=== PATIENT | female | born 1960 | race Caucasian/White ===

== ENCOUNTER → 2016-06-13 | Outpatient (CLI) | payer OTHER ==
--- NOTE | 2016-06-13 10:55 | MM ---
Reason for exam: clinical finding. Last mammogram was performed 6 months ago. History: Patient is postmenopausal. Indicated problem(s): pain in the left breast. Physical Findings: Nurse did not find any significant physical abnormalities on exam. MG 3D Diag Mammo W/Cad LT CC and MLO view(s) were taken of the left breast. Prior study comparison: December 07, 2015, bilateral MG diagnostic mammo w CAD FAREED. No significant new findings when compared with previous films. These results were verbally communicated with the patient and result sheet given to the patient on 06/13/16. ASSESSMENT: Negative, BI-RAD 1 RECOMMENDATION: Routine screening mammogram of both breasts in 6 months. Back on schedule.
--- NOTE | 2016-06-13 11:01 | USB ---
Reason for exam: clinical finding. History: Patient is postmenopausal. US Breast LT Left breast ultrasound including all four quadrants, the retroareolar region and axilla demonstrates a 0.73 x 0.57 x 0.66cm cystic lesion with duct ectasia at the nipple. These results were verbally communicated with the patient and result sheet given to the patient on 06/19/16. ASSESSMENT: Benign, BI-RAD 2 RECOMMENDATION: Routine screening mammogram of both breasts in 6 months. Back on schedule.
== END | disposition home or self-care (01) ==
LOC: RADMAMWWP 08:26
PROVIDERS: ATTEND Family Medicine
DX: N64.4 Mastodynia (principal)
CPT/HCPCS: 76641; G0206; G0279

== ENCOUNTER → 2020-03-11 | Outpatient (CLI) | payer OTHER ==
[2020-03-11 11:18] VITALS: BP 127/84; PULSE 77; RESP 16; TEMP 98.1
--- NOTE | 2020-03-11 11:57 | P.GSHP ---
History of Present Illness H&P Date: 03/11/20 Chief Complaint: mastodynia Sayda is a 59 year old white female seen in consultation for Dr. Padron regarding pain in her left breast. She underwent a left breast diagnostic mammogram on which an ultrasound was recommended nothing of concern was seen in the mammogram. An ultrasound no lesions of concern were identified. She was recommended to follow with a breast surgeon secondary to the persistent pain in the left breast. Bilateral mammogram prior to this and we are obtaining those reports. The pain is intermittent. It occurs approximately once a week. The pain lasts for approximately an hour when it occurs. It does not wake her up at night. She is unsure of what causes the pain. The pain is located in the upper outer quadrant region. It is aching in nature. It does not radiate. 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 She has no history of any infection or surgery of the breast. She does not feel any lumps masses or nodules in her breast. She does not complain of any definite nipple discharge or skin changes. Her last bilateral mammogram was [id number]. This was a benign BIRADS 2 with no worrisome changes. Caffeine: 2 cups of coffee per day Nicotine: She has explosive secondhand smoke from her Theophylline:weekly Family History: sister: breast and colon cancer Hormonal History: menarche: 11 , 1 tubal, breast fed: no, age at first : 14 menopause: 52 BCP: none hormones: none Surgical History: 1. tubal Medical History: 1. overactive bladder 2. COPD 3. HTN Social History: smoke: none, second hand smoke. She used to smoke but stopped 18 years ago; < 1/ppd for 20 years alcohol: none drugs: none - Constitutional Constitutional: Denies chills, Denies fever - EENT Comment: dry eyes wears glasses Ears: bilateral: tinnitus, deny: decreased hearing Ears, nose, mouth and throat: Denies headache, Denies sore throat - Breasts Breasts: bilateral: as per HPI - Cardiovascular Cardiovascular: Denies chest pain, Denies shortness of breath - Respiratory Respiratory: Denies cough, Denies 7 - Gastrointestinal Comment: GERD Gastrointestinal: Denies abdominal pain, Denies diarrhea, Denies nausea, Denies vomiting - Genitourinary (Female) Genitourinary: Denies dysuria, Denies hematuria - Menstruation Menstruation: Reports postmenopausal - Musculoskeletal Comment: back pain extends to lower left abdomen - Integumentary Integumentary: Denies pruritus, Denies rash - Neurological Neurological: Denies numbness, Denies weakness - Psychiatric Psychiatric: Denies anxiety, Denies depression - Endocrine Endocrine: Denies fatigue, Denies weight change - Hematologic/Lymphatic Comment: none - Allergic/Immunologic Allergic/Immunologic: Reports as per HPI, Reports seasonal allergies Past Medical History Past Medical History: COPD, GERD/Reflux, Hypertension History of Any Multi-Drug Resistant Organisms: None Reported Past Surgical History: Heart Catheterization, Tubal Ligation Additional Past Surgical History / Comment(s): ECTOPIC PREG- LAPAROTOMY,COLONOSCOPY,EGD Past Anesthesia/Blood Transfusion Reactions: No Reported Reaction Past Psychological History: Anxiety Smoking Status: Former smoker Past Alcohol Use History: None Reported Additional Past Alcohol Use History / Comment(s): STARTED SMOKING AT AGE 17 QUIT IN 2002 SMOKED 1/2-1PPD Past Drug Use History: None Reported - Past Family History Mother Family Medical History: No Reported History Medications and Allergies Home Medications Medication Instructions Recorded Confirmed Type Acetaminophen Tab [Tylenol] 500 - 1,000 mg PO BID 11/17/15 03/11/20 History Omeprazole 20 mg PO DAILY 11/17/15 03/11/20 History Albuterol Inhaler (Mhu) [Ventolin 1 - 2 puff INHALATION RT-Q6H PRN 11/23/15 03/11/20 History Hfa Inhaler] Mirabegron [Myrbetriq] 50 mg PO DAILY 03/11/20 03/11/20 History lisinopriL [Zestril] 5 mg PO DAILY 03/11/20 03/11/20 History Allergies Allergy/AdvReac Type Severity Reaction Status Date / Time codeine AdvReac Nausea & Verified 03/11/20 11:01 Vomiting Surgical - Exam Vital Signs Temp Pulse Resp BP Pulse Ox 98.1 F 77 16 127/84 96 03/11/20 11:13 03/11/20 11:13 03/11/20 11:13 03/11/20 11:13 03/11/20 11:13 BMI 31.2 - General well developed, well nourished, no distress - Eyes normal ocular movement - ENT no hearing loss, no congestion - Neck trachea midline - Respiratory normal respiratory effort, clear to auscultation - Cardiovascular Rhythm: regular Heart Sounds: normal: S1, S2 - Abdomen Abdomen: soft, non tender, no guarding, no rigid, no rebound - Integumentary normal turgor - Neurologic no disoriented, no combative - Musculoskeletal normal gait - Psychiatric oriented to time, oriented to person, oriented to place, speech is normal, memory intact breast exam: BRA: 40C inspection: bilateral grade 2/3 ptosis Operation: Right breast: Multi-positional exam no dominant masses or nodules of concern, fibrocystic changes Right axilla: No adenopathy of concern Left breast: Multiple positional exam increased fullness upper-outer quadrant extending into the area of the axilla which is the area of tenderness no discrete mass but increased fullness and density Left axilla: No adenopathy of concern Results Mammogram and ultrasound results of the left breast reviewed, right breast mammogram results pending Assessment and Plan Assessment: Impression: 1. overactive bladder 2. COPD 3. HTN 4. Left breast mastodynia 5. Left breast increased fullness upper-outer quadrant area 6. Bilateral mammogram from [id number] reviewed benign BIRAD 2. Plan: 1. Ultrasound targeted evaluation of area of fullness in the left breast upper outer quadrant 2. We will discuss causes of fibrocystic breast discomfort 3. Consider needle biopsy of area of concern depending on ultrasound results 4. Patient is due for bilateral mammogram on [id number], she will have bilateral map mammogram with ultrasound of the area of concern in the left breast and follow-up to see me at that time depending on results of this we will consider a needle biopsy of the area of concern in the left breast Cc: Dr. Bailey encounter 25 minutes, > 50% of time in planning and counselling
== END | disposition home or self-care (01) ==
LOC: WWCWWP 11:00
PROVIDERS: ATTEND Surgery
DX: Z53.9 Procedure and treatment not carried out, unspecified reason (principal)

== ENCOUNTER → 2020-03-28 | Outpatient (CLI) | payer OTHER ==
--- NOTE | 2020-03-29 12:12 | MM ---
Reason for exam: additional evaluation requested from prior study. Last mammogram was performed 3 years and 9 months ago. History: Patient is postmenopausal. Family history of breast cancer in sister at age 60. Physical Findings: Nurse did not find any significant physical abnormalities on exam. MG 3D Diag Mammo W/Cad FAREED Bilateral CC and MLO view(s) were taken. Prior study comparison: June 13, 2016, left breast MG 3d diag mammo w/cad LT. December 07, 2015, bilateral MG diagnostic mammo w CAD FAREED. There are scattered fibroglandular densities. Stable subareolar superior asymmetric density left MLO view. No significant new findings when compared with previous films. These results were verbally communicated with the patient and result sheet given to the patient on 03/28/20. ASSESSMENT: Incomplete: need additional imaging evaluation, BI-RAD 0 RECOMMENDATION: Ultrasound of the left breast. (upper outer quadrant)
--- NOTE | 2020-03-29 12:14 | USB ---
Reason for exam: additional evaluation requested from abnormal screening. History: Patient is postmenopausal. Family history of breast cancer in sister at age 60. US Breast Limited LT Technologist: Emilee Hernandez Left limited breast ultrasound including focal area of concern, retroareolar and axilla demonstrates no cystic or solid lesion seen. Duct ectasia at 12 o'clock. Scanned 12-3 o'clock. These results were verbally communicated with the patient and result sheet given to the patient on 03/28/20. ASSESSMENT: Negative, BI-RAD 1 RECOMMENDATION: Routine screening mammogram of both breasts in 1 year. Manage on a clinical basis with regard to left breast pain and fullness.
== END | disposition home or self-care (01) ==
LOC: RADMAMWWP 14:14
PROVIDERS: ATTEND Surgery
DX: R92.8 Other abnormal and inconclusive findings on diagnostic imaging of breast (principal)
CPT/HCPCS: 77066; 76642; G0279; 77062

== ENCOUNTER → 2020-04-21 | Outpatient (CLI) | payer OTHER ==
[2020-04-21 16:30] VITALS: BP 154/94; PULSE 84; RESP 18; TEMP 97.7
--- NOTE | 2020-04-21 16:43 | P.PN ---
Progress Note - Text Progress Note Date: 04/21/20 Sayda is a 59 year old white female seen in consultation for Dr. Padron on 03-11-20 regarding pain in her left breast She underwent a bilateral mammogram on 03-28-20 which was felt to be incomplete an left breast ultrasound was recommended. This was done on the same day and felt to be benign and bilateral mammogram in 1 year recommended. The pain is intermittent. It occurs approximately once a week. The pain lasts for approximately an hour when it occurs. It does not wake her up at night. She is unsure of what causes the pain. The pain is located in the upper outer quadrant region. It is aching in nature. It does not radiate. 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 She has no history of any infection or surgery of the breast. She does not feel any lumps masses or nodules in her breast. She does not complain of any definite nipple discharge or skin changes. On her last visit of examination of the breast did reveal some fullness in the upper outer quadrant of the left breast extending to the area of the left axilla although no discrete mass was noted. The patient states it is feeling better at this time. On her last visit we had considered a needle aspiration of this area however on today's evaluation she states she is feeling better. At this time she has declined a physical exam or needle aspiration of the area which was uncomfortable. Caffeine: 2 cups per day Nicotine: Negative Theophylline: Previous several times a week now does not eat it Impression: 1. Fibrocystic breast changes probable axillary breast tissue no discrete mass or lesion to warrant biopsy Plan: 1. Continue to modify lifestyle decrease caffeine 2. Follow-up for examination in 3 months or sooner if any concerns Cc: Dr. Padron encounter 10 minutes, > 50% of time on planning and counselling
== END | disposition home or self-care (01) ==
LOC: WWCWWP 15:55
PROVIDERS: ATTEND Surgery
DX: Z53.9 Procedure and treatment not carried out, unspecified reason (principal)

== ENCOUNTER → 2020-06-15 | Outpatient (CLI) | payer OTHER ==
--- NOTE | 2020-06-15 10:01 | US ---
EXAMINATION TYPE: US kidneys/renal and bladder DATE OF EXAM: 06/15/2020 COMPARISON: NONE CLINICAL HISTORY: 60-year-old female R10.12 LUQ pain. TECHNIQUE: Multiple sonographic images of the kidneys and bladder are obtained. FINDINGS: EXAM MEASUREMENTS: Right Kidney: 10.3 x 4.0 x 3.9 cm Left Kidney: 9.5 x 4.9 x 4.6 cm Right Kidney: Prominent renal pelvis versus an extrarenal pelvis. No calyceal dilatation to suggest hydronephrosis. Left Kidney: No hydronephrosis. Bladder: wnl Bilateral Jets seen: Yes IMPRESSION: No hydronephrosis.
--- NOTE | 2020-06-15 10:05 | US ---
EXAMINATION TYPE: US pelvic complete DATE OF EXAM: 06/15/2020 COMPARISON: NONE CLINICAL HISTORY: 60-year-old female R10.12 LUQ pain. TECHNIQUE: Transabdominal sonographic images of the pelvis were acquired. FINDINGS: EXAM MEASUREMENTS: Uterus: 8.7 x 3.0 x 3.2 cm Endometrial Stripe: .4 cm Right Ovary: 1.8 x .9 x 1.6 cm Left Ovary: 2.1 x 1.3 x 1.7 cm 1. Uterus: Anteverted with slightly heterogeneous myometrium 2. Endometrium: Limited detail visualization but without any evident thickening. 3. Right Ovary: wnl 4. Left Ovary: wnl 5. Bilateral Adnexa: wnl 6. Posterior cul-de-sac: wnl IMPRESSION: Endometrial stripe measured at 4 mm by transabdominal scanning, within normal limits. No specific abn ormality identified.
== END | disposition home or self-care (01) ==
LOC: RADUSWWP 09:03
PROVIDERS: ATTEND Family Medicine
DX: R10.12 Left upper quadrant pain (principal)
CPT/HCPCS: 76770; 76856

== ENCOUNTER → 2020-06-16 | Outpatient (CLI) | payer OTHER ==
[2020-06-16 14:18] VITALS: BP 148/89; PULSE 77; RESP 18; TEMP 98.2
--- NOTE | 2020-06-16 14:28 | P.PN ---
Subjective Progress Note Date: 06/16/20 Principal diagnosis: left breast pain Sayda is a 59 year old white female seen in consultation for Dr. Padron on 03-11-20 regarding pain in her left breast She underwent a bilateral mammogram on 03-28-20 which was felt to be incomplete an left breast ultrasound was recommended. This was done on the same day and felt to be benign and bilateral mammogram in 1 year recommended. The pain is intermittent. It occurs approximately three times a week now mre than once a week. The pain lasts for approximately an hour when it occurs. It does not wake her up at night. She is unsure of what causes the pain. The pain is located in the upper outer quadrant region. It is aching in nature. It does not radiate. 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 She has no history of any infection or surgery of the breast. She does not feel any lumps masses or nodules in her breast. She does not complain of any definite nipple discharge or skin changes. On her last visit of examination of the breast did reveal some fullness in the upper outer quadrant of the left breast extending to the area of the left axilla although no discrete mass was noted. The patient states it is feeling better at this time. On her last visit we had considered a needle aspiration of this area however on today's evaluation she states she is feeling better. At this time she has declined a physical exam or needle aspiration of the area which was uncomfortable. Caffeine: 2 cups per day Nicotine: Negative Michael-bromine: Previous several times a week now does not eat it Objective - Vital Signs Vital signs: Intake & Output 06/15/20 06/16/20 06/16/20 18:59 06:59 18:59 Weight 77.111 kg - Exam BMI 30.1 - Constitutional General appearance: Present: average body habitus - EENT Eyes: Present: EOMI ENT: Present: hearing grossly normal - Neck Neck: Present: normal ROM - Respiratory Respiratory: bilateral: CTA - Cardiovascular Rhythm: regular Heart sounds: normal: S1, S2 - Gastrointestinal General gastrointestinal: Present: soft - Integumentary Integumentary: Present: normal turgor - Musculoskeletal Musculoskeletal: Present: gait normal - Psychiatric Psychiatric: Present: A&O x's 3, appropriate affect, intact judgment & insight - Additional findings Additional findings: breast exam: BRA: 40C inspection: grade 2/3 ptosis palpation: Right breast: Multi-positional exam no dominant masses or nodules of concern, fibrocystic changes Right axilla: No adenopathy of concern Left breast: Multiple positional exam increased fullness upper-outer quadrant extending into the area of the axilla which is the area of tenderness, no discrete masses but increased fullness and density Left axilla: No adenopathy of concern Assessment and Plan Assessment: Impression/plan: 1. Overactive bladder 2. COPD 3. Hypertension 4. Left breast mastodynia 5. Left breast increased fullness upper-outer quadrant area 6. Bilateral mammogram from 03-29-20; and ultrasound of the left breast Ultrasound the same day was negative BIRAD 1; routine screening of both breasts 1 year was recommended 7. Secondary to palpable fullness in the upper outer quadrant after discussion the patient wishes to have a core biopsy of the palpable area of concern this will be scheduled in the near future CC: Dr. Padron encounter 20 minutes > 50% of time in planning and counselling
== END | disposition home or self-care (01) ==
LOC: WWCWWP 13:32
PROVIDERS: ATTEND Surgery
DX: Z53.9 Procedure and treatment not carried out, unspecified reason (principal)

== ENCOUNTER → 2020-07-04 | Outpatient (CLI) | payer OTHER ==
--- NOTE | 2020-07-04 11:45 | P.PCN ---
Date of Procedure: 07/04/20 Preoperative Diagnosis: Fullness upper outer quadrant/axillary area left breast Postoperative Diagnosis: Same Procedure(s) Performed: FNA area of fullness, we had initially considered a core biopsy but after examination today have changed to an FNA Surgeon: Nae Lopez Pathology: other (cytology) Condition: stable Disposition: same day Indications for Procedure: Fullness left breast upper outer quadrant/axilla Description of Procedure: The area of concern in the left axilla/breast UOQ was prepped using alcohol a 22-gauge needle on a 10 mL syringe was inserted into the area. Multiple passes were made and tissue was obtained. The patient tolerated the procedure in stable condition. Specimen was sent to pathology. Patient will follow up in 1 week.
[2020-07-04 12:02] VITALS: BP 154/89; PULSE 81; RESP 18; TEMP 97.8
--- NOTE | 2020-07-08 17:00 | P.PN ---
Progress Note - Text Progress Note Date: 07/08/20 FNA results from 2120 showed benign adipose tissue with peripheral blood. No evidence of any malignancy. This information was given to the patient. She is to follow-up in 6 months for a routine examination. She will follow up sooner if she notes anything of concern. The area of concern was in the left breast upper quadrant/axillary area.
== END | disposition home or self-care (01) ==
LOC: WWCWWP 11:13
PROVIDERS: ATTEND Surgery
DX: N64.9 Disorder of breast, unspecified (principal)
CPT/HCPCS: 88173; 88305

== ENCOUNTER → 2020-07-28 | Outpatient (CLI) | payer OTHER ==
--- NOTE | 2020-07-28 16:05 | XR ---
EXAMINATION TYPE: XR ribs LT DATE OF EXAM: 07/28/2020 COMPARISON: 08/10/2015 HISTORY: Pain TECHNIQUE: 4 views submitted FINDINGS: Calcification is seen along the left humeral head likely in the basis of calcific tendinosi s. Arthropathy of the AC joint. No acute fracture. IMPRESSION: No acute slice fracture. At there is a persistent clinical finding this could be correlat ed with CT scan as clinically warranted.
== END | disposition home or self-care (01) ==
LOC: RADXRMAIN 14:52
PROVIDERS: ATTEND Family Medicine
DX: R07.81 Pleurodynia (principal)

== ENCOUNTER → 2020-08-26 | Outpatient (CLI) | payer OTHER | END | disposition home or self-care (01) | LOC: LABWHC1 17:11 | PROVIDERS: ATTEND Family Medicine | DX: R50.9 Fever, unspecified (principal); R05 Cough | CPT/HCPCS: 87502; U0003; C9803 ==

== ENCOUNTER → 2020-09-15 | Outpatient (CLI) | payer OTHER ==
--- NOTE | 2020-09-15 17:01 | XR ---
EXAMINATION: XR chest 2V DATE AND TIME: 09/15/2020 4:53 PM CLINICAL INDICATION: PHH; R05 COUGH TECHNIQUE: Departmental protocol COMPARISON: 07/28/2020 FINDINGS: The lungs are clear. The pleural spaces are negative. The cardiac silhouette is not enlarged. The remainder of the mediastinal silhouette is unremarkable. The skeletal structures and soft tissues are negative for acute findings. IMPRESSION: NO ACUTE PROCESS.
== END | disposition home or self-care (01) ==
LOC: RADXRMAIN 16:33
PROVIDERS: ATTEND Family Medicine
DX: R05 Cough (principal)
CPT/HCPCS: 71046

== ENCOUNTER → 2020-11-14 | Outpatient (CLI) | payer OTHER ==
--- NOTE | 2020-11-14 20:14 | CT ---
EXAMINATION TYPE: CT soft tissue neck wo con DATE OF EXAM: 11/14/2020 HISTORY: lumps to anterior aspect of neck COMPARISON: None CT DLP: 338 mGycm. Automated Exposure Control for Dose Reduction was Utilized. Helical imaging obtained from the skull base through the upper chest. FINDINGS: Lack of contrast could compromise sensitivity Airway: No gross abnormality seen. There is a probable mucous retention cyst present within the right maxillary sinus. Parotid/submandibular glands: No gross abnormality seen. Carotid/Vascular Structures: Not assessed due to lack of contrast Osseous Structures: Degenerative disc changes are present most notably at C4-5 and C5-6 with loss of disc height, minimal anterolisthesis grade 1 C4-5 . Other: The palpable abnormalities are marked with an overlying BB bilaterally. Underlying neck shows benign-appearing nodes. IMPRESSION: No significant abnormality is seen. Benign-appearing lymph nodes correlate to the clinic al abnormality.
== END | disposition home or self-care (01) ==
LOC: RADCTMAIN 16:34
PROVIDERS: ATTEND Family Medicine
DX: R22.1 Localized swelling, mass and lump, neck (principal)
CPT/HCPCS: 70490

== ENCOUNTER → 2020-12-30 | Outpatient (CLI) | payer OTHER ==
--- NOTE | 2021-01-02 09:48 | USB ---
Reason for exam: clinical finding. History: Patient is postmenopausal. Family history of breast cancer in sister at age 60. Indicated problem(s): lump or thickening in the left breast. 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 US Breast Axilla LT Left breast axilla ultrasound demonstrates no cystic or solid lesion seen. These results were verbally communicated with the patient and result sheet given to the patient on 12/30/20. ASSESSMENT: Negative, BI-RAD 1 RECOMMENDATION: Routine screening mammogram of both breasts in 3 months. Back on schedule for March 2021. Manage patient on a clinical basis.
== END | disposition home or self-care (01) ==
LOC: RADUSWWP 09:45
PROVIDERS: ATTEND Family Medicine
DX: Z78.0 Asymptomatic menopausal state (principal); Z80.3 Family history of malignant neoplasm of breast

== ENCOUNTER → 2021-03-30 | Outpatient (CLI) | payer OTHER ==
--- NOTE | 2021-04-03 10:29 | MM ---
Reason for exam: screening (asymptomatic). Last mammogram was performed 1 year ago. History: Patient is postmenopausal. Family history of breast cancer in sister at age 60. Excisional biopsy of the left breast. Physical Findings: A clinical breast exam by your physician is recommended on an annual basis and results should be correlated with mammographic findings. MG 3D Screening Mammo W/Cad Bilateral CC and MLO view(s) were taken. Prior study comparison: December 30, 2020, left breast US breast axilla LT. December 07, 2015, bilateral MG diagnostic mammo w CAD FAREED. There are scattered fibroglandular densities. No significant changes when compared with prior studies. ASSESSMENT: Negative, BI-RAD 1 RECOMMENDATION: Routine screening mammogram of both breasts in 1 year.
== END | disposition home or self-care (01) ==
LOC: RADMAMWWP 10:55
PROVIDERS: ATTEND Surgery
DX: Z12.31 Encounter for screening mammogram for malignant neoplasm of breast (principal); Z80.3 Family history of malignant neoplasm of breast
CPT/HCPCS: 77063; 77067

== ENCOUNTER → 2021-04-06 | Outpatient (CLI) | payer OTHER ==
[2021-04-06 11:34] VITALS: BP 135/81; PULSE 87; RESP 16; TEMP 97.9
--- NOTE | 2021-04-06 12:09 | P.PN ---
Subjective Progress Note Date: 04/06/21 Principal diagnosis: fibrocystic breast changes Sayda is a 60 year old white female seen last year in consultation for Dr. Padron regarding pain in her left breast. She had a chest wall MRI done several months ago at [facility]; she was told she had a fatty t umor on her chest wall. At this time she is not complaining of pain in her breast. She had a bilateral mammogram performed on 1020 821. This was benign BIRADS 1. Caffeine: 2 cups of coffee per day Nicotine: She has exposure of secondhand smoke from her chocolate:weekly Family History: sister: breast and colon cancer Hormonal History: menarche: 11 , 1 tubal, breast fed: no, age at first : 14 menopause: 52 BCP: none hormones: none Surgical History: 1. tubal Medical History: 1. overactive bladder 2. COPD 3. HTN Social History: smoke: none, second hand smoke. She used to smoke but stopped 18 years ago; < 1/ppd for 20 years alcohol: none drugs: none - Constitutional Constitutional: Denies chills, Denies fever - EENT Comment: dry eyes wears glasses Ears: bilateral: tinnitus, deny: decreased hearing Ears, nose, mouth and throat: Denies headache, Denies sore throat - Breasts Breasts: bilateral: as per HPI - Cardiovascular Cardiovascular: Denies chest pain, Denies shortness of breath - Respiratory Respiratory: Denies cough - Gastrointestinal Comment: GERD Gastrointestinal: Denies abdominal pain, Denies diarrhea, Denies nausea, Denies vomiting - Genitourinary (Female) Genitourinary: Denies dysuria, Denies hematuria - Menstruation Menstruation: Reports postmenopausal - Musculoskeletal Comment: back pain extends to lower left abdomen - Integumentary Integumentary: Denies pruritus, Denies rash - Neurological Neurological: Denies numbness, Denies weakness - Psychiatric Psychiatric: Denies anxiety, Denies depression - Endocrine Endocrine: Denies fatigue, Denies weight change - Hematologic/Lymphatic Comment: none - Allergic/Immunologic Allergic/Immunologic: Reports as per HPI, Reports seasonal allergies Objective - Vital Signs Vital signs: Vital Signs Temp 97.9 F 04/06/21 11:27 Pulse 87 04/06/21 11:27 Resp 16 04/06/21 11:27 BP 135/81 04/06/21 11:27 Pulse Ox Intake & Output 04/05/21 04/06/21 04/06/21 18:59 06:59 18:59 Weight 78.925 kg - Constitutional General appearance: Present: cooperative - EENT Eyes: Present: EOMI ENT: Present: hearing grossly normal - Neck Neck: Present: normal ROM - Respiratory Respiratory: bilateral: CTA - Cardiovascular Rhythm: regular Heart sounds: normal: S1, S2 - Gastrointestinal General gastrointestinal: Present: soft - Integumentary Integumentary: Present: normal turgor - Musculoskeletal Musculoskeletal: Present: gait normal - Psychiatric Psychiatric: Present: A&O x's 3, appropriate affect, intact judgment & insight - Additional findings Additional findings: Breast Exam: BRA: 40C Inspection: Grade 2/3 ptosis bilateral, crusting on the left nipple Palpation: Right breast: Multi-positional exam fibrocystic changes, no dominant masses or nodules of concern Weighted axilla: No adenopathy of concern Left breast: Multiple positional exam fibrocystic changes no dominant masses or nodules of concern, crusting at the left nipple; patient has never noted any blood from the nipple area Left axilla: No adenopathy of concern Assessment and Plan Assessment: Impression: 1. Fibrocystic breast changes 2. MRI with possible soft tissue mass left chest wall results have been requested 3. Crusting left nipple no bloody discharge Plan: 1. Bilateral mammogram in 1 year with physician exam at that time 2. ultrasound left nipple area related to the crusting; follow up after this is done 3. We have requested MRI results which was done approximately 2 months ago Cc: Dr. Padron
== END ==
LOC: WWCWWP 10:59
PROVIDERS: ATTEND Surgery
DX: N60.11 Diffuse cystic mastopathy of right breast (principal); N60.12 Diffuse cystic mastopathy of left breast; N64.59 Other signs and symptoms in breast; Z88.5 Allergy status to narcotic agent; Z87.891 Personal history of nicotine dependence

== ENCOUNTER → 2021-05-19 | Outpatient (CLI) | payer OTHER ==
--- NOTE | 2021-05-19 10:57 | USB ---
Reason for exam: clinical finding. History: Patient is postmenopausal. Family history of breast cancer in sister at age 60. Excisional biopsy of the left breast. Indicated problem(s): bloody discharge and skin thickening or retraction in the left breast. Physical Findings: Nurse did not find any significant physical abnormalities on exam. US Breast LT Left complete breast ultrasound includes all four quadrants, the retroareolar region and axilla. Finding demonstrates duct ectasia at 12 o'clock. These results were verbally communicated with the patient and result sheet given to the patient on 05/19/21. ASSESSMENT: Benign, BI-RAD 2 RECOMMENDATION: Clinical management of the left breast. Manage patient on a clinical basis.
== END | disposition home or self-care (01) ==
LOC: RADUSWWP 09:47
PROVIDERS: ATTEND Surgery
DX: N60.42 Mammary duct ectasia of left breast (principal)

== ENCOUNTER → 2021-12-14 | Outpatient (CLI) | payer OTHER ==
[2021-12-14 10:23] VITALS: BP 125/77; PULSE 78; RESP 17; TEMP 97.9
--- NOTE | 2021-12-14 10:50 | P.PN ---
Subjective Progress Note Date: 12/14/21 Principal diagnosis: breast pain MRI performed at [facility] [place] [id number] revealed localized swelling mass in lump trunk Impression: Findings likely represent lipoma/fat signal was present at the area of concern. There was no evident effusion. Bone marrow signal was maintained. There was no abnormal enhancement following contrast administration. No abnormal soft tissue was identified Original Note: Subjective Progress Note Date: 04/06/21 Principal diagnosis: fibrocystic breast changes Sayda is a 60 year old white female seen last year in consultation for Dr. Padron regarding pain in her left breast. She had a chest wall MRI done several months ago at [facility]; she was told she had a fatty tumor on her chest wall. At this time she is not complaining of pain in her breast. She had a bilateral mammogram performed on 1019. This was benign BIRADS 1. 12-14-21 A left breast ultrasound was done on 05-19-21 which was BIRAD 2. The patient complains of intermittent pain and a new area on the right breast/ chest wall in the lateral aspect. It only hurts with pressure.She also states the pain on her left side/chest wall laterally is increased. She also complains of nodularity in her left lateral breast it has not changes. She is not having nipple discharge on the left side. As no further question of the nipple on the left or discharge from the left An FNA of the area of fullness in the left breast was performed and 2120 which revealed benign adipose tissue. Caffeine: 2 cups of coffee per day Nicotine: She has exposure of secondhand smoke from her chocolate:weekly Family History: sister: breast and colon cancer Hormonal History: menarche: 11 , 1 tubal, breast fed: no, age at first : 14 menopause: 52 BCP: none hormones: none Surgical History: 1. tubal Medical History: 1. overactive bladder 2. COPD 3. HTN Social History: smoke: none, second hand smoke. She used to smoke but stopped 18 years ago; < 1/ppd for 20 years alcohol: none drugs: none - Constitutional Constitutional: Denies chills, Denies fever - EENT Comment: dry eyes wears glasses Ears: bilateral: tinnitus, deny: decreased hearing Ears, nose, mouth and throat: Denies headache, Denies sore throat - Breasts Breasts: bilateral: as per HPI - Cardiovascular Cardiovascular: Denies chest pain, Denies shortness of breath - Respiratory Respiratory: Denies cough - Gastrointestinal Comment: GERD Gastrointestinal: Denies abdominal pain, Denies diarrhea, Denies nausea, Denies vomiting - Genitourinary (Female) Genitourinary: Denies dysuria, Denies hematuria - Menstruation Menstruation: Reports postmenopausal - Musculoskeletal Comment: back pain extends to lower left abdomen - Integumentary Integumentary: Denies pruritus, Denies rash - Neurological Neurological: Denies numbness, Denies weakness - Psychiatric Psychiatric: Denies anxiety, Denies depression - Endocrine Endocrine: Denies fatigue, Denies weight change - Hematologic/Lymphatic Comment: none - Allergic/Immunologic Allergic/Immunologic: Reports as per HPI, Reports seasonal allergies Objective - Vital Signs Vital signs: Vital Signs Temp 97.9 F 12/14/21 10:21 Pulse 78 12/14/21 10:21 Resp 17 12/14/21 10:21 BP 125/77 12/14/21 10:21 Pulse Ox 96 12/14/21 10:21 FiO2 Intake & Output 12/13/21 12/14/21 12/14/21 18:59 06:59 18:59 Weight 80.286 kg - Exam BMI 31.4 - Constitutional General appearance: Present: cooperative - EENT Eyes: Present: EOMI ENT: Present: hearing grossly normal - Neck Neck: Present: normal ROM - Respiratory Respiratory: bilateral: CTA - Cardiovascular Heart sounds: normal: S1, S2 - Integumentary Integumentary: Present: normal turgor - Musculoskeletal Musculoskeletal: Present: gait normal - Psychiatric Psychiatric: Present: A&O x's 3, appropriate affect, intact judgment & insight - Additional findings Additional findings: Breast exam: BRA: 40C Inspection: Grade 2/3 ptosis Palpation: Right breast: No dominant masses or nodules of concern Right axilla: No adenopathy of concern Tender lateral aspect of chest wall on right side Left breast: Multiple positional exam no dominant masses or nodules of concern/tender lateral aspect of chest wall Left axilla: No adenopathy of concern Assessment and Plan Assessment: Impression: 1. overactive bladder 2. COPD 3. HTN 4. Bilateral chest wall/lateral breast tenderness to palpation Plan: Patient will bring in her MRI disc so that we can review the actual disc from [facility] February 2021 Depending on results of this may order additional MRI At this time there is nothing discrete in the breast radiographically or on examination to warrant biopsy Follow up next week with patient bringing in her desk CC: Dr. Haywood
== END ==
LOC: WWCWWP 10:13
PROVIDERS: ATTEND Surgery
DX: N64.4 Mastodynia (principal); N32.81 Overactive bladder; J44.9 Chronic obstructive pulmonary disease, unspecified; I10 Essential (primary) hypertension; Z87.891 Personal history of nicotine dependence; Z88.0 Allergy status to penicillin; Z88.5 Allergy status to narcotic agent

== ENCOUNTER → 2021-12-28 | Outpatient (CLI) | payer OTHER ==
[2021-12-28 08:57] VITALS: BP 109/73; PULSE 82; RESP 16; TEMP 98
--- NOTE | 2021-12-28 09:55 | P.PN ---
Progress Note - Text Progress Note Date: 12/28/21 MRI was reviewed personally with Dr. Boateng. The films were received from [facility]. No specific lesions of concern were identified on the chest wall. There is a question of some rotator cuff damage on the left side. Nothing specific on physical exam was identified for biopsy. Her last bilateral mammogram was a 282 which was benign BIRADS 1, and ultrasound of the left breast was benign BIRADS 2 and [id number]. She does continue to complain of some discomfort in the left breast have offered a repeat mammogram at this time that she has stated that she is doing March will have it done them. At this time there is nothing radiographically on physical exam which I can biopsy therefore I will follow her conservatively. Plan: Bilateral mammogram in March with physician exam at that time The pain continue she should follow up sooner CC: Dr. Haywood
== END | disposition home or self-care (01) ==
LOC: WWCWWP 08:46
PROVIDERS: ATTEND Surgery
DX: Z53.9 Procedure and treatment not carried out, unspecified reason (principal)

== ENCOUNTER → 2022-03-16 | Outpatient (CLI) | payer OTHER ==
--- NOTE | 2022-03-16 14:53 | XR ---
2 view spine HISTORY: Pain Frontal lateral views of the spine submitted on total of 8 images Cervical spine shows multilevel spondylosis, loss of disc height is present at C4-5, C5-6. Prevertebr al soft tissues are normal. Cervical vertebral bodies show preserved height, alignment, and bone mine ralization. Facet arthropathy changes present. Lumbar spine shows decreased bone mineralization. Loss of disc height of intervertebral levels is not ed. This multilevel spondylosis. Sclerosis in the posterior elements consistent with facet arthropath y. After describing vascular calcifications in the distribution of the area of iliac vessels noted. Thoracic spine vertebral bodies show preserved height and alignment. Bone mineralization is reduced. There is mild multilevel spondylosis. Loss of the scattered intervertebral levels in the midthoracic spine noted. IMPRESSION: Osteopenia and degenerative disc disease, facet arthropathy as described.
== END | disposition home or self-care (01) ==
LOC: RADXRMAIN 12:14
PROVIDERS: ATTEND Nurse Practitioner Family
DX: M50.322 Other cervical disc degeneration at C5-C6 level (principal); M47.812 Spondylosis without myelopathy or radiculopathy, cervical region
CPT/HCPCS: 72082

== ENCOUNTER → 2022-04-02 | Outpatient (CLI) | payer OTHER ==
--- NOTE | 2022-04-03 17:31 | MM ---
Reason for Exam: Screening (asymptomatic). Last screening mammogram was performed 12 month(s) ago. Patient History: Menarche at age 12. First Full-Term at age 14. Postmenopausal. Excisional Biopsy on the Left side. Sister had breast cancer, age 60. Risk Values: Kassi 5 year model risk: 3.4%. NCI Lifetime model risk: 14.6%. Prior Study Comparison: 06/13/2016 Left Diagnostic Mammogram, [facility]. 03/28/2020 Bilateral Diagnostic Mammogram, [facility]. 03/30/2021 Bilateral Screening Mammogram, [facility]. Tissue Density: There are scattered fibroglandular densities. Findings: Analyzed By CAD. Benign vascular calcifications present bilaterally. No suspicious groups of microcalcifications, spiculated or lobular masses, architectural distortion or other secondary signs of malignancy are mammographically apparent. Overall Assessment: Benign, BI-RAD 2 Management: Screening Mammogram of both breasts in 1 year. A negative mammogram report should not preclude additional follow up of suspicious palpable abnormalities. Patient should continue monthly self breast exam. A clinical breast exam by your physician is recommended on an annual basis and results should be correlated with mammographic findings. Electronically signed and approved by: Emre Delgado D.O. Radiologis
== END | disposition home or self-care (01) ==
LOC: RADMAMWWP 09:33
PROVIDERS: ATTEND Surgery
DX: Z12.31 Encounter for screening mammogram for malignant neoplasm of breast (principal); Z78.0 Asymptomatic menopausal state; Z80.3 Family history of malignant neoplasm of breast
CPT/HCPCS: 77063; 77067

== ENCOUNTER → 2022-04-06 | Outpatient (CLI) | payer OTHER ==
[2022-04-06 08:54] VITALS: BP 132/80; PULSE 88; RESP 16; TEMP 98.2
--- NOTE | 2022-04-06 09:06 | P.PN ---
Subjective Progress Note Date: 04/06/22 Principal diagnosis: Mastodynia Sayda is 61-year-old white female who has been seen in the past regarding left breast/chest wall discomfort. She had a bilateral mammogram performed on 1029 which was benign BIRADS 2. The patient continues to have pain in her left chest wall. She states she has fullness at this site which has increased in size recently. The patient has had an MRI at [facility] which was reviewed in the past with Dr. Boateng. At that time no lesions of concern were identified [place] [id number] stated with findings likely were representing a lipoma. There was a question of some rotator cuff damage on the left side in the past. Risk evaluation 3.4% at 5 years I talked about hormone reduction and she has declined. Family History: sister: breast and colon cancer Hormonal History: menarche: 11 , 1 tubal, breast fed: no, age at first : 14 menopause: 52 BCP: none hormones: none Surgical History: 1. tubal Medical History: 1. overactive bladder 2. COPD 3. HTN Social History: smoke: none, second hand smoke. She used to smoke but stopped 18 years ago; < 1/ppd for 20 years alcohol: none drugs: none - Constitutional Constitutional: Denies chills, Denies fever - EENT Comment: dry eyes wears glasses Ears: bilateral: tinnitus, deny: decreased hearing Ears, nose, mouth and throat: Denies headache, Denies sore throat - Breasts Breasts: bilateral: as per HPI - Cardiovascular Cardiovascular: Denies chest pain, Denies shortness of breath - Respiratory Respiratory: Denies cough - Gastrointestinal Comment: GERD Gastrointestinal: Denies abdominal pain, Denies diarrhea, Denies nausea, Denies vomiting - Genitourinary (Female) Genitourinary: Denies dysuria, Denies hematuria - Menstruation Menstruation: Reports postmenopausal - Musculoskeletal Comment: back pain extends to lower left abdomen - Integumentary Integumentary: Denies pruritus, Denies rash - Neurological Neurological: Denies numbness, Denies weakness - Psychiatric Psychiatric: Denies anxiety, Denies depression - Endocrine Endocrine: Denies fatigue, Denies weight change - Hematologic/Lymphatic Comment: none - Allergic/Immunologic Allergic/Immunologic: Reports as per HPI, Reports seasonal allergies Past Medical History Past Medical History: COPD, GERD/Reflux, Hypertension History of Any Multi-Drug Resistant Organisms: None Reported Past Surgical History: Heart Catheterization, Tubal Ligation Additional Past Surgical History / Comment(s): ECTOPIC PREG- LAPAROTOMY,COLONOSCOPY,EGD Past Anesthesia/Blood Transfusion Reactions: No Reported Reaction Past Psychological History: Anxiety Smoking Status: Former smoker Past Alcohol Use History: None Reported Additional Past Alcohol Use History / Comment(s): STARTED SMOKING AT AGE 17 QUIT IN 2002 SMOKED 1/2-1PPD Past Drug Use History: None Reported Objective - Constitutional General appearance: Present: cooperative - EENT Eyes: Present: EOMI ENT: Present: hearing grossly normal - Neck Neck: Present: normal ROM - Respiratory Respiratory: bilateral: CTA - Cardiovascular Heart sounds: normal: S1, S2 - Gastrointestinal General gastrointestinal: Present: soft - Integumentary Integumentary: Present: normal turgor - Musculoskeletal Musculoskeletal: Present: gait normal - Psychiatric Psychiatric: Present: A&O x's 3, appropriate affect, intact judgment & insight - Additional findings Additional findings: Breast examination: BRA: 40C Inspection: Bilateral grade 3 ptosis Palpation: Right breast: Multi-positional exam fibrocystic changes no dominant masses or nodules of concern Right axilla: No adenopathy of concern Left breast: Multiple positional exam fibrocystic changes no dominant masses or nodules of concern Left axilla: No adenopathy of concern On the patient's lateral chest wall bilaterally she complains of discomfort and a question of some nodularity which may represent a lipoma it is greater on the left than on the right Assessment and Plan Assessment: Impression: Fibrocystic breast changes Recent bilateral mammogram [id number] benign BIRADS 2 Risk 3.4% she has declined hormone reduction therapy Patient continues to have discomfort in the left lateral chest wall with question of a small lipoma at this site and states that she has the same thing occurring on the right side nothing was palpated on the right a small area of nodularity was palpated on the left Plan: Bilateral lateral chest wall ultrasounds to evaluate for possible soft tissue mass Bilateral mammogram in 1 year Follow up after ultrasound CC: Dr. Sam Calvert
== END | disposition home or self-care (01) ==
LOC: WWCWWP 08:36
PROVIDERS: ATTEND Surgery
DX: Z53.9 Procedure and treatment not carried out, unspecified reason (principal)

== ENCOUNTER → 2022-04-17 | Outpatient (CLI) | payer OTHER ==
--- NOTE | 2022-04-17 09:51 | USB ---
Reason for Exam: Clinical finding. Indicated Problems: Non-bloody discharge of both sides. Patient History: Menarche at age 12. First Full-Term at age 14. Postmenopausal. Excisional Biopsy on the Left side. Sister had breast cancer, age 60. Risk Values: Kassi 5 year model risk: 3.4%. NCI Lifetime model risk: 14.6%. Prior Study Comparison: 03/28/2020 Bilateral Diagnostic Mammogram, [facility]. 03/30/2021 Bilateral Screening Mammogram, [facility]. 04/02/2022 Bilateral MG 3D screening mammo w/cad, [facility]. Findings: The whole breast of both breasts, the axilla of both breasts and the retroareolar of both breasts were scanned. A complete US of all four quadrants of the breast and retro-areolar region were reviewed. No solid or cystic masses are identified. There is duct ectasia at the left nipple measuring up to 3 mm. No discrete mass identified in the duct. Overall Assessment: Benign, BI-RAD 2 Management: Screening Mammogram of both breasts in 1 year. A clinical breast exam by your physician is recommended on an annual basis and results should be correlated with mammographic findings. This exam should not preclude additional follow-up of suspicious palpable abnormalities. Results were given to the patient verbally at the time of exam. Electronically signed and approved by: Elvis Bernal D.O.
== END | disposition home or self-care (01) ==
LOC: RADUSWWP 08:57
PROVIDERS: ATTEND Surgery
DX: N64.4 Mastodynia (principal); Z78.0 Asymptomatic menopausal state; Z80.3 Family history of malignant neoplasm of breast; Z98.890 Other specified postprocedural states

== ENCOUNTER → 2022-04-20 | Outpatient (CLI) | payer OTHER ==
[2022-04-20 16:18] VITALS: BP 112/72; PULSE 92; RESP 17; TEMP 98.2
--- NOTE | 2022-04-20 16:22 | P.PN ---
Progress Note - Text Progress Note Date: 04/20/22 Returns today for results of her ultrasound of both breasts and the left chest wall area. She states that the area of the chest wall was evaluated by the ultrasound examination. Nothing of concern was identified this was felt to be a benign BIRADS 2. Nothing on physical examination or by ultrasound has been identified which would require biopsy at this time. The patient's when we follow closely. She'll follow-up in 6 months for physical examination. Anything changes she will follow up sooner. Cc: Dr. Pritchard
== END | disposition home or self-care (01) ==
LOC: WWCWWP 15:20
PROVIDERS: ATTEND Surgery
DX: Z53.9 Procedure and treatment not carried out, unspecified reason (principal)

== ENCOUNTER → 2022-06-08 | Outpatient (CLI) | payer OTHER ==
--- NOTE | 2022-06-08 10:45 | US ---
EXAMINATION TYPE: US abdomen complete DATE OF EXAM: 06/08/2022 COMPARISON: Renal ultrasound 06/15/2020 CLINICAL HISTORY: R10.9 ABDOMINAL PAIN. TECHNIQUE: Multiple sonographic images of the abdomen are obtained. FINDINGS: EXAM MEASUREMENTS: Liver Length: 13.9 cm Gallbladder Wall: 0.2 cm CBD: 0.1 cm Spleen: 10.5 cm Right Kidney: 10.3 x 3.6 x 4.0 cm Left Kidney: 10.3 x 5.0 x 4.5 cm ROUSTABOUT HAND NOTES: Patient of large body habitus. Pancreas: wnl, slightly obscured by overlying bowel gas Liver: left lobe cyst measuring 1.3 x 0.8 x 1.1cm, Gallbladder: cholelithiasis without wall thickening CBD: wnl Spleen: wnl Right Kidney: prominent renal pelvis, limited visualization due to overlying bowel Left Kidney: possible minimal hydronephrosis, irregular contour Upper IVC: wnl Abd Aorta: wnl Visualized portions of pancreas are unremarkable. Benign-appearing cyst within the left hepatic lobe. Cholelithiasis without evidence for pericholecystic fluid or wall thickening. The common bile duct a nd spleen are within normal limits. Prominent right extra renal pelvis. Minimal left hydronephrosis. No solid contour deforming mass of both kidneys or shadowing calculi. The intrahepatic portion of the IVC and proximal abdominal aorta are within normal limits. IMPRESSION: 1. Minimal left hydronephrosis. 2. Hepatic cyst. 3. Cholelithiasis without evidence for acute cholecystitis.
--- NOTE | 2022-06-08 10:47 | US ---
EXAMINATION TYPE: US pelvic complete DATE OF EXAM: 06/08/2022 COMPARISON: Pelvic ultrasound 06/15/2020 CLINICAL HISTORY: R10.9 ABDOMINAL PAIN. TECHNIQUE: Transabdominal (TA). Date of LMP: postmenopausal patient EXAM MEASUREMENTS: Uterus: 8.1 x 2.5 x 3.3 cm Endometrial Stripe: not visualized Right Ovary: not visualized Left Ovary: not visualized Patient denied transvaginal ultrasound due to worries about insurance paying for it. Patient unable t o well fill her bladder making exam very limited. 1. Uterus: Anteverted, now well seen 2. Endometrium: unable to visualize due to above limitations 3. Right Ovary: Obscured by overlying bowel gas and above limitations 4. Left Ovary: Obscured by overlying bowel gas and above limitations Spectral, color and waveform doppler imaging shows good arterial and venous flow within the ovaries ; there is no evidence for ovarian torsion. 5. Bilateral Adnexa: wnl 6. Posterior cul-de-sac: wnl IMPRESSION: Significantly limited examination without evidence for acute process. There is nonvisualization of th e endometrial stripe and both ovaries due to above limitations.
== END | disposition home or self-care (01) ==
LOC: RADUSWWP 08:33
PROVIDERS: ATTEND Internal Medicine Gastroenterology
DX: K80.20 Calculus of gallbladder without cholecystitis without obstruction (principal); N13.30 Unspecified hydronephrosis; K76.89 Other specified diseases of liver
CPT/HCPCS: 76700; 76856

== ENCOUNTER → 2022-07-05 | Outpatient (CLI) | payer OTHER ==
--- NOTE | 2022-07-05 11:30 | BD ---
EXAMINATION TYPE: Axial Bone Density DATE OF EXAM: 07/05/2022 COMPARISON: NONE CLINICAL HISTORY: 62 years year old Female. ICD-10 CODE: M85.80 DISRD OF BONE DENSITY AND STRUCTURE, Height: 63 Weight: 173.1 FRAX RISK QUESTIONS: Alcohol (3 or more units per day): NO Family History (Parent hip fracture): FATHER Glucocorticoids (More than 3mos): NO History of Fracture in Adulthood: TIB-FIB Secondary Osteoporosis: 1. Type 1 Diabetes: NO 2. Hyperthyroidism: NO 3. Menopause before 45: NO 4. Malnutrition: NO 5. Chronic liver disease: NO Rheumatoid Arthritis: NO Current Tobacco Use: NO RISK FACTORS HISTORY OF: Hip Fracture (Right/Left):NO Spine Fracture: NO History of Wrist Fracture: NO Surgery to Spine/Hip(right/left)/Wrist (right/left): NO Family History of Osteoporosis: NO Active: NO Diet low in dairy products/other sources of calcium: YES Postmenopausal woman: YES Take estrogen and/or progesterone medications: NO Lost more than 2 inches in height since high school: NO Frequent falls: NO Poor Health: NO Hyperparathyroidism: NO Adrenal Insufficiency: NO MEDICATIONS: Prednisone or other steroids: NO Thyroid Medications: NO Osteoporosis Medications: NO Additional Medications: BP MEDS, REFLUX MEDS, EXAM MEASUREMENTS: Bone mineral densitometry was performed using the [employer]. Bone mineral density as measured about the Lumbar spine is: ----- L1-L4(G/cm2): 0.941 T Score Values are as follows: ----- L1: -2.9 ----- L2: -2.3 ----- L3: -1.6 ----- L4: -1.6 ----- L1-L4: -2.0 BASELINE STUDY Bone mineral density about the R hip (g/cm2): 0.791 Bone mineral density about the L hip (g/cm2): 0.808 T Score values are as follows: -----R Neck: -1.8 -----L Neck: -1.7 -----R Total: -1.4 -----L Total: -1.5 BASELINE STUDY FRAX%s: The graph provided illustrates a 28.6% chance for a major osteoporotic fx and a 1.9% chance f or the hips probability for fx in 10 years time. IMPRESSION: Osteoporosis (T Score less than -2.5). There is increased fracture risk and therapy is usually indicated based on age. Re-Screen 1-2 years. NOTE: T-SCORE=SD OF THE YOUNG ADULT MEAN.
== END | disposition home or self-care (01) ==
LOC: RADBDWWP 10:40
PROVIDERS: ATTEND Family Medicine
DX: M81.0 Age-related osteoporosis without current pathological fracture (principal); M85.80 Other specified disorders of bone density and structure, unspecified site
CPT/HCPCS: 77080

== ENCOUNTER → 2023-05-01 | Outpatient (CLI) | payer OTHER ==
--- NOTE | 2023-05-02 11:03 | MM ---
Reason for Exam: Screening (asymptomatic). Last mammogram was performed 1 year(s) and 1 month(s) ago. Patient History: Menarche at age 12. First Full-Term at age 14. Postmenopausal. Excisional Biopsy on the Left side. Sister had breast cancer, age 60. Risk Values: Kassi 5 year model risk: 3.5%. NCI Lifetime model risk: 14.2%. Prior Study Comparison: 03/28/2020 Bilateral Diagnostic Mammogram, [facility]. 03/30/2021 Bilateral Screening Mammogram, [facility]. 04/02/2022 Bilateral MG 3D screening mammo w/cad, [facility]. Tissue Density: The breast tissue is heterogeneously dense. This may lower the sensitivity of mammography. Findings: Analyzed By CAD. There is no suspicious group of microcalcifications or new suspicious mass in either breast. Overall Assessment: Negative, BI-RAD 1 Management: Screening Mammogram of both breasts in 1 year. . Patient should continue monthly self-breast exams. A clinical breast exam by your physician is recommended on an annual basis. This exam should not preclude additional follow-up of suspicious palpable abnormalities. Note on Kassi scores and lifetime risk: 1. A Kassi score greater than 3% is considered moderate risk. If this is the case, consider specialist referral to assess eligibility for a risk reducing agent. 2. If overall lifetime risk for the development of breast cancer is 20% or higher, the patient may qualify for future screening with alternating mammogram and breast MRI. Electronically signed and approved by: Niltno Camarillo M.D. Radiologis
== END | disposition home or self-care (01) ==
LOC: RADMAMWWP 09:14
PROVIDERS: ATTEND Surgery
DX: Z12.31 Encounter for screening mammogram for malignant neoplasm of breast (principal); Z78.0 Asymptomatic menopausal state; Z80.3 Family history of malignant neoplasm of breast
CPT/HCPCS: 77063; 77067

== ENCOUNTER → 2023-06-13 | Outpatient (CLI) | payer OTHER ==
[2023-06-13 12:08] VITALS: BP 130/78; PULSE 95; RESP 17; TEMP 98.1
--- NOTE | 2023-06-13 12:14 | P.PN ---
Subjective Progress Note Date: 06/13/23 Principal diagnosis: fibrocystic breast changes fibrocystic breast changes Sayda is a 60 year old white female seen last year in consultation for Dr. Padron regarding pain in her left breast. 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 At this time she is not complaining of pain in her breast. She had a bilateral mammogram performed on [id number]. This was benign BIRADS 1. 12-14-21 A left breast ultrasound was done on 05-19-21 which was BIRAD 2. The patient complains of intermittent pain and a new area on the right breast/ chest wall in the lateral aspect. It only hurts with pressure.She also states the pain on her left side/chest wall laterally is increased. She also complains of nodularity in her left lateral breast it has not changes. She is not having nipple discharge on the left side. As no further question of the nipple on the left or discharge from the left An FNA of the area of fullness in the left breast was performed and 2120 which revealed benign adipose tissue. 06-13-23 The patient has left chest wall tenderness with deep palpation. bilateral mammogram on 04-21-23 BIRAD 1 We have discussed chemoprophylaxis and she has declined at this time. sheila risk 3.5% lifetime risk: 14.2% Caffeine: 2 cups of coffee per day Nicotine: She has exposure of secondhand smoke from her chocolate:weekly Family History: sister: breast and colon cancer Hormonal History: menarche: 11 , 1 tubal, breast fed: no, age at first : 14 menopause: 52 BCP: none hormones: none Surgical History: 1. tubal Medical History: 1. overactive bladder 2. COPD 3. HTN Social History: smoke: none, second hand smoke. She used to smoke but stopped 18 years ago; < 1/ppd for 20 years alcohol: none drugs: none - Constitutional Constitutional: Denies chills, Denies fever - EENT Comment: dry eyes wears glasses Ears: bilateral: tinnitus, deny: decreased hearing Ears, nose, mouth and throat: Denies headache, Denies sore throat - Breasts Breasts: bilateral: as per HPI - Cardiovascular Cardiovascular: Denies chest pain, Denies shortness of breath - Respiratory Respiratory: Denies cough - Gastrointestinal Comment: GERD Gastrointestinal: Denies abdominal pain, Denies diarrhea, Denies nausea, Denies vomiting - Genitourinary (Female) Genitourinary: Denies dysuria, Denies hematuria - Menstruation Menstruation: Reports postmenopausal - Musculoskeletal Comment: back pain extends to lower left abdomen - Integumentary Integumentary: Denies pruritus, Denies rash - Neurological Neurological: Denies numbness, Denies weakness - Psychiatric Psychiatric: Denies anxiety, Denies depression - Endocrine Endocrine: Denies fatigue, Denies weight change - Hematologic/Lymphatic Comment: none - Allergic/Immunologic Allergic/Immunologic: Reports as per HPI, Reports seasonal allergies Objective - Vital Signs Vital signs: Vital Signs Temp 98.1 F 06/13/23 11:41 Pulse 95 06/13/23 11:41 Resp 17 06/13/23 11:41 BP 130/78 06/13/23 11:41 Pulse Ox 97 06/13/23 11:41 FiO2 Intake & Output 06/12/23 06/13/23 06/13/23 18:59 06:59 18:59 Weight 77.111 kg - Constitutional General appearance: Present: cooperative - EENT Eyes: Present: EOMI ENT: Present: hearing grossly normal - Neck Neck: Present: normal ROM - Respiratory Respiratory: bilateral: CTA - Cardiovascular Heart sounds: normal: S1, S2 - Gastrointestinal General gastrointestinal: Present: soft - Integumentary Integumentary: Present: normal turgor - Musculoskeletal Musculoskeletal: Present: gait normal - Psychiatric Psychiatric: Present: A&O x's 3, appropriate affect, intact judgment & insight - Additional findings Additional findings: Breast exam: BRA: 40C Inspection: Grade 2/3 ptosis Palpation: Right breast: Multi-positional exam No dominant masses or nodules of concern, tenderness right chest wall on today's examination Right axilla: No adenopathy of concern Left breast: Multiple positional exam no dominant masses or nodules of concern/tender lateral aspect of chest wall Left axilla: No adenopathy of concern Assessment and Plan Assessment: Impression: 1. overactive bladder 2. COPD 3. HTN 4. No radiographic lesions or clinical exam lesions in the past to warrant interventional biopsy Plan: Bilateral mammogram April 2024 with appointment at that time Patient to follow up sooner any questions or concerns CC: Dr. Pritchard
== END ==
LOC: WWCWWP 10:53
PROVIDERS: ATTEND Surgery
DX: I10 Essential (primary) hypertension (principal); J44.9 Chronic obstructive pulmonary disease, unspecified; N32.81 Overactive bladder; N60.11 Diffuse cystic mastopathy of right breast; N60.12 Diffuse cystic mastopathy of left breast; N64.4 Mastodynia; Z87.891 Personal history of nicotine dependence; Z88.0 Allergy status to penicillin; Z88.5 Allergy status to narcotic agent; Z79.899 Other long term (current) drug therapy

== ENCOUNTER → 2024-02-10 | Outpatient (CLI) | payer OTHER ==
--- NOTE | 2024-02-10 14:02 | CT ---
EXAMINATION TYPE: CT brain wo con CT DLP: 995.5 mGycm, Automated exposure control for dose reduction was used. DATE OF EXAM: 02/10/2024 1:54 PM COMPARISON: None. CLINICAL INDICATION: Female, 63 years old with history of R51.9 HEADACHE, headache and dizziness TECHNIQUE: Brain: Axial CT images of the brain were obtained with coronal and sagittal reformats created and rev iewed. Contrast used: None. Oral contrast used: None. FINDINGS: Brain: Extra-axial spaces: No abnormal extra-axial fluid collections. Ventricular system: Within normal limits Cerebral parenchyma: No acute intraparenchymal hemorrhage or mass effect. The james-white junction is well differentiated. Cerebellum: Unremarkable. Mass effect: No evidence of midline shift. Intracranial vasculature: unremarkable Soft tissues: Normal. Calvarium/osseous structures: No depressed skull fracture. Paranasal sinuses and mastoid air cells: Mild scattered paranasal sinus disease. Visualized orbits: Orbital contents are intact. IMPRESSION: No acute intracranial process.
== END | disposition home or self-care (01) ==
LOC: RADCTMAIN 13:33
PROVIDERS: ATTEND Family Medicine
DX: R51.9 Headache, unspecified
CPT/HCPCS: 70450

== ENCOUNTER → 2024-05-05 | Outpatient (CLI) | payer MEDICARE, OTHER ==
--- NOTE | 2024-05-06 17:22 | MM ---
Reason for Exam: Screening (asymptomatic). Last mammogram was performed 1 year(s) and 1 month(s) ago. Patient History: Menarche at age 12. First Full-Term at age 14. Postmenopausal. Excisional Biopsy on the Left side. Sister had breast cancer, age 60. Risk Values: Kassi 5 year model risk: 3.5%. NCI Lifetime model risk: 13.7%. Prior Study Comparison: 03/30/2021 Bilateral Screening Mammogram, [facility]. 04/02/2022 Bilateral MG 3D screening mammo w/cad, [facility]. 05/01/2023 Bilateral MG 3D screening mammo w/cad, [facility]. Tissue Density: There are scattered areas of fibroglandular density. Findings: Analyzed By CAD. There is no suspicious group of microcalcifications or new suspicious mass in either breast. Overall Assessment: Negative, BI-RAD 1 Management: Screening Mammogram of both breasts in 1 year. See note below in regards to patient's increased 5 year Kassi score. Patient should continue monthly self-breast exams. A clinical breast exam by your physician is recommended on an annual basis. This exam should not preclude additional follow-up of suspicious palpable abnormalities. Note on Kassi scores and lifetime risk: 1. A Kassi score greater than 3% is considered moderate risk. If this is the case, consider specialist referral to assess eligibility for a risk reducing agent. 2. If overall lifetime risk for the development of breast cancer is 20% or higher, the patient may qualify for future screening with alternating mammogram and breast MRI. [facility], , 05/06/2024 5:19 PM. Electronically signed and approved by: Unique Boateng M.D. Radiologist
== END | disposition home or self-care (01) ==
LOC: RADMAMWWP 13:27
PROVIDERS: ATTEND Surgery
DX: Z12.31 Encounter for screening mammogram for malignant neoplasm of breast (principal); Z78.0 Asymptomatic menopausal state; Z80.3 Family history of malignant neoplasm of breast; R92.323 Mammographic fibroglandular density, bilateral breasts
CPT/HCPCS: 77063; 77067

== ENCOUNTER → 2024-05-08 | Outpatient (CLI) | payer MEDICARE, OTHER ==
[2024-05-08 09:51] VITALS: BP 143/78; PULSE 95; RESP 17; TEMP 97.9
--- NOTE | 2024-05-08 10:11 | P.PN ---
Subjective Progress Note Date: 05/08/24 Principal diagnosis: fibrocystic breast disease 05-08-24 Principal diagnosis: fibrocystic breast changes Sayda is a 60 year old white female seen last year in consultation for Dr. Padron regarding pain in her left breast. 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 At this time she is not complaining of pain in her breast. She had a bilateral mammogram performed on 05-05-24. This was benign BIRADS 1. She has noted some crusting on her left nipple but no discharge. Additionally she complains of discomfort in the lateral aspect of the left b reast as well as a prior probable lipoma in the left chest wall release has increased in size. We have discussed chemoprophylaxis and she has declined at this time. aminah risk 3.5% lifetime risk: 13.7% Caffeine: 2 cups of coffee per day Nicotine: She has exposure of secondhand smoke from her chocolate:weekly Family History: sister: breast and colon cancer Hormonal History: menarche: 11 , 1 tubal, breast fed: no, age at first : 14 menopause: 52 BCP: none hormones: none Surgical History: 1. tubal Medical History: 1. overactive bladder 2. COPD 3. HTN Social History: smoke: none, second hand smoke. She used to smoke but stopped 18 years ago; < 1/ppd for 20 years alcohol: none drugs: none - Constitutional Constitutional: Denies chills, Denies fever - EENT Comment: dry eyes wears glasses Ears: bilateral: tinnitus, deny: decreased hearing Ears, nose, mouth and throat: Denies headache, Denies sore throat - Breasts Breasts: bilateral: as per HPI - Cardiovascular Cardiovascular: Denies chest pain, Denies shortness of breath - Respiratory Respiratory: Denies cough - Gastrointestinal Comment: GERD Gastrointestinal: Denies abdominal pain, Denies diarrhea, Denies nausea, Denies vomiting - Genitourinary (Female) Genitourinary: Denies dysuria, Denies hematuria - Menstruation Menstruation: Reports postmenopausal - Musculoskeletal Comment: back pain extends to lower left abdomen - Integumentary Integumentary: Denies pruritus, Denies rash - Neurological Neurological: Denies numbness, Denies weakness - Psychiatric Psychiatric: Denies anxiety, Denies depression - Endocrine Endocrine: Denies fatigue, Denies weight change - Hematologic/Lymphatic Comment: none - Allergic/Immunologic Allergic/Immunologic: Reports as per HPI, Reports seasonal allergies Objective - Vital Signs Vital signs: Vital Signs Temp 97.9 F 05/08/24 09:49 Pulse 95 05/08/24 09:49 Resp 17 05/08/24 09:49 BP 143/78 05/08/24 09:49 Pulse Ox 97 05/08/24 09:49 FiO2 Intake & Output 05/07/24 05/08/24 05/08/24 18:59 06:59 18:59 Weight 78.471 kg - Constitutional General appearance: Present: cooperative - EENT Eyes: Present: EOMI ENT: Present: hearing grossly normal - Neck Neck: Present: normal ROM - Respiratory Respiratory: bilateral: CTA - Cardiovascular Rhythm: regular Heart sounds: normal: S1, S2 - Integumentary Integumentary: Present: normal turgor - Musculoskeletal Musculoskeletal: Present: gait normal - Psychiatric Psychiatric: Present: A&O x's 3, appropriate affect, intact judgment & insight - Additional findings Additional findings: Breast exam: BRA: 40C Inspection: Grade 2/3 ptosis Palpation: Right breast: Multi-positional exam No dominant masses or nodules of concern, tenderness right chest wall on today's examination Right axilla: No adenopathy of concern Left breast: Multiple positional exam no dominant masses or nodules of concern/tender lateral aspect of chest wall, ? Lateral aspect of left chest wall small area of nodularity approximately 3 x 2 cm in size may represent a lipoma, crusting of left nipple Left axilla: No adenopathy of concern Assessment and Plan Assessment: Impression: 1. overactive bladder 2. COPD 3. HTN 4. bilateral mammogram on 05-05-24 BIRAD 1 Aminah Score 3.5% 5 year risk, declined chemoprophylaxis Plan: Bilateral mammogram April 2025 with appointment at that time MRI of chest wall attention left lateral chest, MRI of breast then follow up CC: Dr. Pritchard
== END ==
LOC: WWCWWP 09:34
PROVIDERS: ATTEND Surgery
DX: Z12.31 Encounter for screening mammogram for malignant neoplasm of breast (principal); N60.11 Diffuse cystic mastopathy of right breast; N60.12 Diffuse cystic mastopathy of left breast; R92.8 Other abnormal and inconclusive findings on diagnostic imaging of breast; I10 Essential (primary) hypertension; J44.9 Chronic obstructive pulmonary disease, unspecified; N32.81 Overactive bladder; Z80.3 Family history of malignant neoplasm of breast; Z88.0 Allergy status to penicillin; Z88.5 Allergy status to narcotic agent; Z87.891 Personal history of nicotine dependence

== ENCOUNTER → 2024-06-01 | Outpatient (CLI) | payer MEDICARE, OTHER ==
--- NOTE | 2024-06-01 13:16 | CT ---
EXAMINATION TYPE: CT chest wo con CT DLP: 333.40 mGycm, Automated exposure control for dose reduction was used. DATE OF EXAM: 06/01/2024 1:10 PM COMPARISON: Chest radiograph 09/15/2020, CT chest 03/20/2016 CLINICAL INDICATION:Female, 64 years old with history of R222 mass L chest wall; PHH, Palpable lumps LT side of chest. Areas patient feels marked by BBs. TECHNIQUE: Multiple axial images were obtained through the chest without IV contrast. Lack of IV or o ral contrast limits evaluation of solid and hollow organ viscera. . Coronal and sagittal reformats re viewed. BP markers were placed left-sided chest at patient's palpable abnormality. FINDINGS: LUNGS/ PLEURA: No pleural effusion, pneumothorax, or focal consolidation. Linear scarring or atelecta sis within the lingula. No suspicious pulmonary nodule or mass. AIRWAY: Patent and unremarkable.. HEART: Size within normal limits.No pericardial effusion. MEDIASTINUM: No gross evidence of adenopathy. VASCULATURE: No aortic aneurysm. MUSCULOSKELETAL: No acute osseous abnormalities SOFT TISSUES/LYMPH NODES: Unremarkable. No corresponding abnormality to palpable markers. LOWER NECK: No significant findings. UPPER ABDOMEN: Cholelithiasis. Left hepatic lobe 1.3 cm cyst. IMPRESSION: 1. No acute thoracic process. 2. No CT evidence for abnormality corresponding to patient's palpable markers. 3. Cholelithiasis. [facility], , 06/01/2024 1:14 PM
== END | disposition home or self-care (01) ==
LOC: RADCTMAIN 12:31
PROVIDERS: ATTEND Surgery
DX: K80.20 Calculus of gallbladder without cholecystitis without obstruction (principal); R22.2 Localized swelling, mass and lump, trunk
CPT/HCPCS: 71250

== ENCOUNTER → 2024-07-28 | Outpatient (CLI) | payer MEDICARE, OTHER ==
--- NOTE | 2024-07-28 15:31 | USB ---
Reason for Exam: Clinical finding. Indicated Problems: Lump or thickening of the left side. Patient History: Menarche at age 12. First Full-Term at age 14. Postmenopausal. Excisional Biopsy on the Left side. Sister had breast cancer, age 60. Risk Values: Kassi 5 year model risk: 3.6%. NCI Lifetime model risk: 13.3%. Technique: Method: Targeted. Patient Position: Supine. Prior Study Comparison: 04/02/2022 Bilateral MG 3D screening mammo w/cad, [facility]. 05/01/2023 Bilateral MG 3D screening mammo w/cad, [facility]. 05/05/2024 Bilateral MG 3D screening mammo w/cad, [facility]. Findings: The area of palpable concern of the left breast and the axilla of the left breast were scanned. Electronically signed and approved by: Christian Gordillo DO
== END | disposition home or self-care (01) ==
LOC: RADUSWWP 14:54
PROVIDERS: ATTEND Surgery
DX: N63.20 Unspecified lump in the left breast, unspecified quadrant (principal); Z78.0 Asymptomatic menopausal state; Z80.3 Family history of malignant neoplasm of breast